=== PATIENT | male | born 1980 | race Caucasian/White ===

== ENCOUNTER 2017-12-23 19:29 | Emergency (ER) | payer BC, SELFPAY ==
[2017-12-23 19:30] VITALS: BP 131/85; PULSE 110; RESP 18; TEMP 37.3; O2SAT 96; BMI 23.8
--- NOTE | 2017-12-23 20:02 | CT_ITS ---
STUDY: CT ABDOMEN AND PELVIS WITHOUT CONTRAST REASON FOR EXAM: Male, 37 years old. Dyspnea. Left flank pain. RADIATION DOSAGE (If Supplied By Facility): CTDIvol = ( 6.65 ) mGy, DLP = ( 345.52 ) mGycm TECHNIQUE: Transaxial images were obtained from the dome of the diaphragm to the symphysis pubis without oral contrast, and without intravenous contrast. Sagittal and coronal images were reconstructed. Individualized dose optimization techniques were used for this CT. COMPARISON: None. FINDINGS: The visualized lung bases are unremarkable. The visualized portions of the heart are within normal limits. Normal liver. Normal gallbladder and extrahepatic biliary system. Normal spleen. Normal pancreas. Normal bilateral adrenal glands. Normal right kidney. Normal left kidney. Evaluation of the GI tract is limited by absence of oral contrast. Cannot exclude stomach wall thickening. No dilated loops of bowel or evidence for obstruction. Cannot exclude segmental thickening of the reddy of the small or large bowel. There is an inflammatory process in the left upper quadrant centered around the proximal descending colon and apparently representing acute diverticulitis without perforation or abscess. Findings can be seen on axial images 53-85 and coronal images 55-67. Appendix within normal limits. Normal abdominal aorta. Normal inferior vena cava. Normal retroperitoneum. Normal urinary bladder. There has been previous repair of left inguinal hernia. Currently normal abdominal wall. Normal osseous structures. CT/Abdomen/Pelvis without Cont IMPRESSION: Inflammatory process in the left upper quadrant centered around the proximal descending colon and apparently representing acute diverticulitis without perforation or abscess. Electronically Signed: Michael Babin MD at 21:12 EDT , Service support ,
[2017-12-23 20:19] LABS: Bacteria 0 SEEN /hpf (None Seen); Mucous, Urine 0 SEEN /hpf (<or=2+); Red Blood Cells-Urine 0 SEEN /hpf (0-5); Squamous Epithelial Cells - UA 0 SEEN /hpf (0-5); White Blood Cells 0 SEEN /hpf (0-5)
[2017-12-23 20:23] LABS: Absolute Lymphocyte Count 1.66 X10^3/ul (0.83-4.51); Absolute Neutrophil Count 9.2 X10^3/uL (2.0-7.7); Basophil# 0.03 X10^3/uL; Basophil% 0.2 % (0-1); Eosinophils% 0.8 % (0-5); Hematocrit 46.6 % (40-54); Hemoglobin 16.1 g/dl (13.0-16.5); Lymphocyte # 1.66 X10^3/ul (4.0); Lymphocyte % 13.8 % (19-41); Mean Corp Hgb Conc 34.5 g/gl (32-36); Mean Corpuscular Hgb 31.3 pg (27.0-32.0); Mean Corpuscular Volume 90.7 fL (80-94); Mean Platelet Vol. 10.1 fl (6.2-12.0); Monocyte# 1.06 X10^3/uL; Monocyte% 8.8 % (0-10); Neutrophil # 9.15 X10^3/uL (2.7-7.7); Neutrophil % 76.3 % (47-70); Platelet Count 238 K/mm3 (150-450); RBC Distribution Width CV 13.1 % (11.6-14.6); RBC Distribution Width SD 43.4 fl (35.1-43.9); Red Blood Count 5.14 M/mm3 (4.6-6.2)
[2017-12-23 20:24] LABS: POSITIVE COUNT NO; POSITIVE DIFFERENTIAL NO; POSITIVE MORPHOLOGY NO
[2017-12-23 20:30] LABS: Color, Urine Yellow (Yellow); Glucose, Dipstick Normal (Normal); Ketone-Dipstick 15 mg/dl (Negative); Leukocyte Esterase-Dipstick Negative /ul (Negative); Nitrite-Dipstick Negative (Negative); Occult Blood-Urine Negative /ul (Negative); Protein-Dipstick 15 mg/dl (Negative); Specific Gravity, Urine 1.015 (1.002-1.030); Urine Bilirubin Dipstick Negative (Negative); Urine Clarity Clear (Clear); Urine Urobilinogen Normal (Normal)
[2017-12-23 20:39] LABS: AST(SGOT) 33 U/L (15-37); Alanine Aminotransfer ALT/SGPT 38 U/L (16-61); Albumin, Serum 3.9 g/dL (3.2-5.0); Alkaline Phosphatase 79 U/L (45-117); Anion Gap 5 (5-15); BUN 20 mg/dL (7-18); BUN/Creat Ratio 13.9 RATIO (10-20); Calcium,Total 9.1 mg/dL (8.5-10.1); Chloride 103 mmol/L (98-107); Creatinine, Serum 1.44 mg/dL (0.70-1.30); EST Glomerular Filtration Rate 59 mL/min (>60); Est Glom Filt Rate - Afr Amer 72 mL/min (>60); Estimated Creatinine Clearance 85.58 ml/min; Glucose 92 mg/dL (74-106); Lipase 81 U/L (73-393); Potassium 4.3 mmol/L (3.5-5.1); Protein, Total 7.9 g/dL (6.4-8.2); Sodium Level 137 mmol/L (136-145)
[2017-12-23 22:06] VITALS: RESP 18
[2017-12-23] MEDS: Ketorolac 30 MG/ML Syringe IV (22:34)
[2017-12-23] MEDS: Ciprofloxacin 400 MG/200 ML BAG 200 MG IV (22:35)
--- NOTE | 2017-12-23 23:02 | ED.VIS.GEN ---
History of Present Illness Chief Complaint: Abd Pain Informant: Patient Onset: Days - 2-3 Context: Gradual Onset Timing: Continuous Quality: ache/soreness Location: left flank. pain radiates into left low back. Current Severity: Moderate Maximum Severity: Moderate Worsened by: eating and taking deep breath Relieved by: nothing Associated Symptoms: fever yest. feels sore in testicles. Narrative: Patient states within about an hour of eating almost anything, consistently in the last few days, his pain worsens. It does not go away at all. It has been fairly persistent over the last several days. He denies having any urinary symptoms or nausea/vomiting. He has chronic diarrhea couple times a day, it is loose not watery and nonbloody. He has been advised to follow-up for that but has not. This is a new pain. He denies any recent injuries. Aside from the above details, the pain is not necessarily colicky. He has had remote bilateral inguinal herniorrhaphies but no other surgeries in his abdomen. Past Medical History - Allergies and Home Meds Allergies/Adverse Reactions: Allergies No Known Allergies Allergy (Verified 12/23/17 19:30) Primary Care Physician: Care Physician,No Primary [Primary Care Provider] - Surgical History: herniorrhaphy Smoking Status: Never smoker Review of Systems All systems negative except as indicated General: Reports: Fever Cardiovascular: Denies: Chest pain, Palpitations, Heart racing Respiratory: Denies: Dyspnea, Cough Gastrointestinal: Reports: Abdominal pain, Diarrhea - chronic. Denies: Nausea, Vomiting, Melena, Hematochezia Genitourinary: Reports: - - scrotal soreness. Denies: Dysuria, Hematuria, Frequency Musculoskeletal: Reports: Back pain. Denies: Myalgias, Arthralgias, Neck pain, Extremity Pain Skin: Denies: Rash, Abscess Neurological: Denies: Headache, Weakness, Parasthesia Physical Exam Vital Signs/Narrative: Vital Signs Temp Pulse Resp BP Pulse Ox 12/23/17 22:06 18 12/23/17 19:30 99.1 F 110 H 18 131/85 H 96 Inital Vital Signs reviewed: Yes General: Well nourished, Well developed Head: Normocephalic, Atraumatic Eyes: Perrl, EOMI ENT: Moist mucous membranes, No rhinorrhea Neck: Supple, Nontender Cardiovascular: Regular rate, Regular rhythm, No murmurs Respiratory: No distress, CTA bilaterally, Chest nontender Abdomen: Soft, Nondistended, Normal bowel sounds, Tender - throughout left abd, worst in LUQ. Negative for: Guarding, Rebound tenderness Back: Nontender, Normal Inspection. Negative for: CVA tenderness Extremities: Nontender, No edema Skin: Normal color, No rash Neurological: Alert, Oriented x3, Cranial nerves II-XII grossly intact, Normal Strength, Normal Sensation Psychological: Normal affect Diagnostic/Tx/Re-eval Impressions Abdomen/Pelvis CT 12/23/17 20:02 IMPRESSION: Inflammatory process in the left upper quadrant centered around the proximal descending colon and apparently representing acute diverticulitis without perforation or abscess. Electronically Signed: Michael Babin MD at 21:12 EDT , Service support , 12/23/17 20:02 CT Abd [Abdomen/Pelvis without Cont] [CT] Stat Laboratory Results 12/23/17 12/23/17 12/23/17 Range/Units 20:10 20:16 20:16 WBC 12.0 H (4.4-11.0) K/mm3 RBC 5.14 (4.6-6.2) M/mm3 Hgb 16.1 (13.0-16.5) g/dl Hct 46.6 (40-54) % MCV 90.7 (80-94) fL MCH 31.3 (27.0-32.0) pg MCHC 34.5 (32-36) g/gl RDW 13.1 (11.6-14.6) % RDW Differential 43.4 (35.1-43.9) fl Plt Count 238 (150-450) K/mm3 MPV 10.1 (6.2-12.0) fl Immature Gran % (Auto) 0.100 (0.0-0.9) % Neut % (Auto) 76.3 H (47-70) % Lymph % (Auto) 13.8 L (19-41) % [place] % (Auto) 8.8 (0-10) % Eos % (Auto) 0.8 (0-5) % Baso % (Auto) 0.2 (0-1) % Absolute Neuts (auto) 9.2 H (2.0-7.7) X10^3/uL Absolute Lymphs (auto) 1.66 (0.83-4.51) X10^3/ul Total Counted Not Reportable Sodium 137 (136-145) mmol/L Potassium 4.3 (3.5-5.1) mmol/L Chloride 103 (98-107) mmol/L Carbon Dioxide 29.0 (21.0-32.0) mmol/L Anion Gap 5 (5-15) BUN 20 H (7-18) mg/dL Creatinine 1.44 H (0.70-1.30) mg/dL Estim Creat Clear Calc 85.58 ml/min Est GFR (MDRD) Af Amer 72 (>60) mL/min Est GFR (MDRD) Non-Af 59 L (>60) mL/min BUN/Creatinine Ratio 13.9 (10-20) RATIO Glucose 92 (74-106) mg/dL Calcium 9.1 (8.5-10.1) mg/dL Total Bilirubin 0.70 (0.20-1.00) mg/dL AST 33 (15-37) U/L ALT 38 (16-61) U/L Alkaline Phosphatase 79 (45-117) U/L Total Protein 7.9 (6.4-8.2) g/dL Albumin 3.9 (3.2-5.0) g/dL Globulin 4.0 (2.2-4.2) g/dL Albumin/Globulin Ratio 1.0 (0.9-2.4) RATIO Lipase 81 (73-393) U/L Urine Color Yellow (Yellow) Urine Clarity Clear (Clear) Urine pH 6.0 (5.0 - 8.0) Ur Specific [place] 1.015 (1.002-1.030) Urine Protein 15 H (Negative) mg/dl Urine Glucose (UA) Normal (Normal) mg/dl Urine Ketones 15 H (Negative) mg/dl Urine Occult Blood Negative (Negative) /ul Urine Nitrite Negative (Negative) Urine Bilirubin Negative (Negative) mg/dL Urine Urobilinogen Normal (Normal) mg/dl Ur Leukocyte Esterase Negative (Negative) /ul Urine RBC 0 SEEN (0-5) /hpf Urine WBC 0 SEEN (0-5) /hpf Ur Squamous Epith Cells 0 SEEN (0-5) /hpf Urine Bacteria 0 SEEN (None Seen) /hpf Urine Mucus 0 SEEN (<or=2+) /hpf - Medical Decision Making Urine is normal, labs show a mild leukocytosis and mild renal insufficiency. CT without contrast was obtained, given the differential including gastritis or stomach related issues, colonic related issues, renal related issues along with ureterolithiasis. CT shows colonic inflammation and what appears to be diverticulitis in the sigmoid, which is consistent with where his pain is, without any evidence of an abscess or perforation. Clinically he is very stable and not having severe symptoms. He was given doses of IV Cipro and Flagyl, along with analgesics, and I feel he can safely be discharged and treated as an outpatient with Cipro and Flagyl for 10 days, advised that he will need follow-up and may need a follow-up outpatient colonoscopy once he is better. All questions answered at bedside, he is comfortable with that plan. ED Disposition - Plan for ED Patient: Disposition: Home or Assisted Living Chief Complaint: Shortness of Breath Diagnosis: Diverticulitis large intestine w/o perforation or abscess w/o bleeding Instructions: ED Diverticulitis Prescriptions: Ciprofloxacin [Cipro] 500 mg PO BID #20 tab Metronidazole [Flagyl] 500 mg PO BID #20 tab Referrals: Steve Gonzalez MD [STAFF PHYSICIAN] - 1-2 Weeks
[2017-12-23 23:58] VITALS: BP 111/75; PULSE 95; RESP 18; O2SAT 98
[2017-12-24] VITALS: BP 111/77; PULSE 95; RESP 18; O2SAT 98
== END 2017-12-24 00:01 | disposition home or self-care (01) ==
PROVIDERS: Emergency Provider Emergency Medicine
DX: K57.32 Diverticulitis of large intestine without perforation or abscess without bleeding (principal)
CPT/HCPCS: 74176; 80053; 81001; 83690; 85025; 96365; 96367; 96375; 99285; J7050; A4216; J0744